=== PATIENT | male | born 2000 | race Caucasian/White ===

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

== ENCOUNTER 2023-06-02 17:34 | Emergency (ER) | payer OTHER ==
[~2023-06-02] VITALS: Ht 180.3 cm; Wt 93.3 kg
[2023-06-02 18:13] LABS: HEMOGLOBIN 13.2 g/dL (12.0-18.0)
[2023-06-02 18:24] LABS: HEMATOCRIT 38.1 % (35.0-50.0); MCH 32.6 (27-36); MCHC 34.6 g/dl (30-36); MCV 94.1 fl (81-99); PLATELET COUNT 182 K/uL (140-440); RBC 4.04 M/ul (4.3-5.7); RDW 13.9 (10.5-15.0)
[2023-06-02 18:31] LABS: ALBUMIN 2.9 g/dL (3.4-5.0); ALBUMIN/GLOBULIN RATIO 0.66 (1.1-2.4); BILIRUBIN, TOTAL 0.5 ng/dL (0.2-1.0); BUN/CREATININE RATIO 11.88 (6.0-28.6); CALCIUM 8.7 mg/dL (8.5-10.1); CREATININE, SERUM 1.01 mg/dL (0.70-1.30); PROTEIN, TOTAL 7.3 g/dL (6.4-8.2)
[2023-06-02 18:55] LABS: BASOPHILS, MANUAL DIFF 1; EOSINOPHILS, MANUAL DIFF 1; LYMPHOCYTES, MANUAL DIFF 79; MONOCYTES, MANUAL DIFF 6; NEUTROPHILS, MANUAL DIFF 11; OTHER, MANUAL DIFF 2
[2023-06-02 19:22] VITALS: BP 131/91
== END 2023-06-02 19:22 | disposition home or self-care (01) ==
LOC: ED 17:34
PROVIDERS: Emergency Medicine
DX: B27.90 Infectious mononucleosis, unspecified without complication (principal)
CPT/HCPCS: 36415; 80053; 85025; 86308; J7030